=== PATIENT | male | born 1970 | race African-American/Black ===

== ENCOUNTER 2019-08-25 21:03 | Inpatient (IN) | payer OTHER ==
[~2019-08-25] VITALS: Ht 180.3 cm; Wt 83.9 kg
[2019-08-25] MEDS ORDERED: GAVILAX510 GM PO (23:08)
[2019-08-25] MEDS ORDERED: METFORMIN HCL500 M1 PO (23:08)
[2019-08-25] MEDS ORDERED: GLIMEPIRIDE2 MG PO (23:09)
[2019-08-25 23:17] VITALS: BP 167/104; BMI 25.8
--- NOTE | 2019-08-26 04:12 | NUR ---
I have reviewed this patient and I concur with the Shift Assessment completed by the Licensed Practical Nurse today this shift.
--- NOTE | 2019-08-26 07:24 | NUR ---
PT AWAKE AND ORIENTED, NO COMPLAINTS OR CONCERNS STATED AT THIS TIME. SISTER AT BEDSIDE REQUESTS TOOTHBRUSH AND TOOTHPASTE FOR THE PT, STATING HE FORGOT HIS. NO PROBLEM WILL PROVIDE. HAVE NO ORDERS AT THIS TIME. CL IN REACH, SRX2.
[2019-08-26 08:28] LABS: BASOPHILS 0.4 % (0-2); EOSINOPHILS 2.8 % (0-7); HEMATOCRIT 34.8 % (42.0-54.0); HEMOGLOBIN 11.4 g/dL (13.5-17.5); LYMPHOCYTES 27.7 % (15-50); MCH 29.2 pg (26.0-34.0); MCHC 32.8 g/dL (31.0-37.0); MCV 89.2 fL (80.0-100.0); MEAN PLATELET VOLUME 9.2 fL (7.4-10.4); MONOCYTES 5.4 % (2-11); NEUTROPHILS 63.7 % (40-80); PLATELET COUNT 233 10x3/uL (130-400); RDW 13.3 % (11.5-14.5); WBC 5.4 10x3/uL (4.8-10.8)
[2019-08-26 08:47] LABS: ANION GAP 12.7 mmol/L (8-16); CALCIUM 9.3 mg/dL (8.5-10.1); CARBON DIOXIDE 29.2 mmol/L (21.0-32.0); CREATININE - SERUM 5.1 mg/dL (0.6-1.3); POTASSIUM - SERUM 4.9 mmol/L (3.5-5.1)
[2019-08-26 08:50] VITALS: BP 170/112
--- NOTE | 2019-08-26 10:06 | NUR ---
PT AWAKE AND ORIENTED, SISTERS AT BEDSIDE. NO COMLAINTS, ALL QUESTIONS ANSWERED TO THE BEST OF MY ABILITY. CL IN REACH, SRX2.
--- NOTE | 2019-08-26 10:46 | NUR ---
I have reviewed this patient and I concur with the Shift Assessment completed by the Licensed Practical Nurse today this shift.
[2019-08-26 12:19] LABS: ALBUMIN 2.7 g/dL (3.4-5.0); ANION GAP 15.7 mmol/L (8-16); BILIRUBIN - TOTAL 0.38 mg/dL (0.2-1.3); CALCIUM 9.4 mg/dL (8.5-10.1); CARBON DIOXIDE 25.2 mmol/L (21.0-32.0); CHOL - HDL RATIO 4.6 ratio (2.3-4.9); CREATININE - SERUM 5.2 mg/dL (0.6-1.3); LDL-HDL RATIO 3.2 ratio (1.5-3.5); MAGNESIUM - SERUM 2.1 mg/dL (1.8-2.4); PHOSPHOROUS 3.7 mg/dL (2.5-4.9); POTASSIUM - SERUM 4.9 mmol/L (3.5-5.1)
[2019-08-26 12:56] VITALS: BP 166/109
[2019-08-26 17:30] VITALS: BP 147/100
[2019-08-26 20:04] VITALS: BP 156/92
--- NOTE | 2019-08-26 22:33 | NUR ---
PT LYING IN BED WITH EYES OPEN. ALERT AND ORIENTED X3. VITAL SIGNS STABLE. NO SIGNS AND SYMPTOMS OF DISTRESS. RESPIRATIONS EVEN AND UNLABORED. NO COMPLAINTS OF PAIN AT THIS TIME. CALL LIGHT WITHIN REACH AND BED IS IN LOWEST POSITION. WILL CONTINUE TO MONITOR.
--- NOTE | 2019-08-26 23:47 | NUR ---
PT BP 153/109 MARGARET WITH [facility] CALLED. NEW MED ORDERS ESTABLISHED. SEE NOV. WILL CONTINUE TO MONITOR.
[2019-08-27 00:01] VITALS: BP 157/103
--- NOTE | 2019-08-27 03:00 | NUR ---
PT BP 129/89. WILL CONTINUE TO MONITOR.
--- NOTE | 2019-08-27 03:33 | NUR ---
I have reviewed this patient and I concur with the Shift Assessment completed by the Licensed Practical Nurse today this shift.
[2019-08-27 05:10] LABS: APPEARANCE CLEAR (CLEAR); BILIRUBIN NEGATIVE (NEGATIVE); COLOR YELLOW (YELLOW); GLUCOSE NEGATIVE (NEGATIVE); KETONE NEGATIVE (NEGATIVE); NITRITE NEGATIVE (NEGATIVE); PROTEIN NEGATIVE (NEGATIVE); SPECIFIC GRAVITY 1.005 (1.005-1.020); UROBILINOGEN NORMAL (NORMAL)
[2019-08-27 05:19] LABS: UDS - AMPHET NEGATIVE QUAL (NEGATIVE); UDS - BARB NEGATIVE QUAL (NEGATIVE); UDS - BENZO NEGATIVE QUAL (NEGATIVE); UDS - COCAINE NEGATIVE QUAL (NEGATIVE); UDS - OPIATE NEGATIVE QUAL (NEGATIVE); UDS - PCP NEGATIVE QUAL (NEGATIVE); UDS - THC NEGATIVE QUAL (NEGATIVE)
[2019-08-27 05:28] VITALS: BP 129/89
[2019-08-27 06:41] LABS: BASOPHILS 0.2 % (0-2); EOSINOPHILS 3.5 % (0-7); HEMATOCRIT 34.1 % (42.0-54.0); LYMPHOCYTES 26.8 % (15-50); MCH 28.6 pg (26.0-34.0); MCHC 32.3 g/dL (31.0-37.0); MCV 88.8 fL (80.0-100.0); MEAN PLATELET VOLUME 9.5 fL (7.4-10.4); MONOCYTES 8.2 % (2-11); NEUTROPHILS 61.3 % (40-80); PLATELET COUNT 261 10x3/uL (130-400); RBC 3.84 10x6/uL (4.20-6.10); RDW 13.3 % (11.5-14.5); WBC 5.1 10x3/uL (4.8-10.8)
[2019-08-27 06:49] LABS: ANION GAP 13.5 mmol/L (8-16); CARBON DIOXIDE 27.7 mmol/L (21.0-32.0); CREATININE - SERUM 4.4 mg/dL (0.6-1.3); PHOSPHOROUS 3.4 mg/dL (2.5-4.9); POTASSIUM - SERUM 4.2 mmol/L (3.5-5.1); URIC ACID 6.3 mg/dL (2.6-7.2)
--- NOTE | 2019-08-27 07:09 | NUR ---
PT AWAKE AND ORIENTED LYING IN BED, FAMILY MEMEBER AT BEDSIDE RECLINER. NO COMPLAINTS OR CONCERNS AT THIS TIME, ALL QUESTIONS ANSWERED TO THE BEST OF MY ABILITY. CL IN REACH, SRX2.
[2019-08-27 08:00] VITALS: BP 129/89
--- NOTE | 2019-08-27 09:11 | NUR ---
SPOE WITH LAB ABOUT THE 3 UNCOLLECTED URINES, THEY STATED THEY COULD RUN THEM OFF OF THE URINE THAT WAS COLLECTED LAST NIGHT. PT STATES HE'S FEELING A LITTLE BETTER, JUST VERY TIRED. NO FAMILY PRESENT AT BEDSIDE. CL IN REACH, SRX2.
[2019-08-27 09:24] LABS: CREATININE - URINE 37.5 mg/dL (30-125); PRO/CRE RATIO URINE 0.2 mg/g; PROTEIN - URINE 8.7 mg/dL (0.0-11.9)
--- NOTE | 2019-08-27 10:47 | NUR ---
I have reviewed this patient and I concur with the Shift Assessment completed by the Licensed Practical Nurse today this shift.
--- NOTE | 2019-08-27 11:45 | NUR ---
SPOKE WITH ULTRASOUND PEOPLE, THEY STATED THEY WERE COMING TO DO THE ULTRASOUND DR. BALLESTEROS ORDERED BUT THEY WOULDNT BE REPEATING THE KIDNEY ONE BECASUE IT WAS DONE AND REPORTED YESTERDAY (08/26). PT HAS BEEN COMPLAINING OF A HEADACHE, B/P IS WNL. GAVE TYLENOL FOR RELIEF. NO OTHER COMPLAINTS/CONCERNS, ALL QUESTIONS ANSWERED.CL IN REACH, SRX2.
[2019-08-27 12:00] VITALS: BP 146/92
--- NOTE | 2019-08-27 14:58 | NUR ---
PT AWAKE AND ORIENTED, NO COMPLAINTS OR CONCERNS, STATES HEADACHE IS FEELING BETTER. NO FAMILY AT BEDSIDE. CL IN REACH, SRX2.
[2019-08-27 15:16] VITALS: BMI 25.8
[2019-08-27 16:00] VITALS: BP 128/93
[2019-08-27 20:45] VITALS: BP 131/87
--- NOTE | 2019-08-28 00:19 | NUR ---
RESTING WITH EYES CLOSED, RESPERATIONS EVEN, NO S/S DISTRESS NOTED.
[2019-08-28 00:30] VITALS: BP 134/86
--- NOTE | 2019-08-28 02:10 | NUR ---
I have reviewed this patient and I concur with the Shift Assessment completed by the Licensed Practical Nurse today this shift.
[2019-08-28 04:43] VITALS: BP 132/81
[2019-08-28 06:28] LABS: BASOPHILS 0.5 % (0-2); EOSINOPHILS 3.3 % (0-7); HEMATOCRIT 36.2 % (42.0-54.0); HEMOGLOBIN 11.5 g/dL (13.5-17.5); IMMATURE GRANULOCYTES 0.2 % (0-5); LYMPHOCYTES 22.3 % (15-50); MCH 28.3 pg (26.0-34.0); MCHC 31.8 g/dL (31.0-37.0); MCV 89.2 fL (80.0-100.0); MEAN PLATELET VOLUME 9.7 fL (7.4-10.4); MONOCYTES 6.5 % (2-11); NEUTROPHILS 67.2 % (40-80); PLATELET COUNT 276 10x3/uL (130-400); RBC 4.06 10x6/uL (4.20-6.10); RDW 13.1 % (11.5-14.5); WBC 5.5 10x3/uL (4.8-10.8)
[2019-08-28 06:50] LABS: ANION GAP 11.5 mmol/L (8-16); CALCIUM 9.1 mg/dL (8.5-10.1); CARBON DIOXIDE 29.9 mmol/L (21.0-32.0); CREATININE - SERUM 3.9 mg/dL (0.6-1.3); PHOSPHOROUS 3.6 mg/dL (2.5-4.9); POTASSIUM - SERUM 4.4 mmol/L (3.5-5.1)
[2019-08-28 08:00] VITALS: BP 152/99
--- NOTE | 2019-08-28 09:54 | NUR ---
PATIENT IS BEING DISCHARGED. ALL DISCHARGE TEACHING HAS BEEN DONE, PAPERS SIGNED. IV REMOVED FROM HIS RIGHT ARM. SON AT BEDSIDE. PATIENT IS WAITING ON HIS O2 TO BE DELIVERED FOR[facility]. SOON THE O2 IS DELIVERED, HE CAN BE DISCHARGED TO HOME.
--- NOTE | 2019-08-28 09:56 | NUR ---
PATIENT IS ALERT AND AWAKE. DENIES ANY NEEDS AT THIS TIME.
[2019-08-28 10:10] LABS: ANA REFLEX - DBL STRANDED DNA <1 IU/mL (0-9); ANA REFLEX - DIRECT Negative (Negative)
[2019-08-28 11:10] LABS: HAPTOGLOBIN 329 mg/dL (34-200)
[2019-08-28 12:00] VITALS: BP 141/97
[2019-08-28 12:09] LABS: UPE RAND - ALBUMIN 17.5 % (()); UPE RAND - ALPHA 1 GLOBULIN 8.6 % (()); UPE RAND - ALPHA 2 GLOBULIN 12.6 % (()); UPE RAND - BETA GLOBULIN 12.6 % (()); UPE RAND - GAMMA GLOBULIN 48.8 % (())
--- NOTE | 2019-08-28 14:49 | NUR ---
Nutrition Follow-up: Pt reports not eating breakfast this AM but eating ~50% of lunch. C/o nausea. Did not have any further questions regarding diabetic education provided yesterday. Diet: Renal ADA Wt: 185# Last BM: 08/27 Labs noted: Glu 149, GFR 21, PO4 3.6 Meds noted: Amaryl, Humulin -Continue current diet as tolerated. -Encourage PO intake. -RD following.
[2019-08-28 16:00] VITALS: BP 159/103
--- NOTE | 2019-08-28 16:37 | MORECARE ---
CASE MANAGEMENT DISCHARGE SUMMARY PATIENT: SHERRY MURILLO UNIT: [id number] ADM DATE: 08/25/19 AGE: 49 : 74 SEX: M ROOM/BED: D.2138 AUTHOR: SHIRA BANGURA PHYSICIAN: REFERRING PHYSICIAN: LIZZETTE TUBBS MD DATE OF SERVICE: 08/28/19 Discharge Plan Patient Name: SHERRY MURILLO [facility] : 1970 Planned Disposition: Home Anticipated Discharge Date: 08/28/19 Discharge Date: Expected LOS: 3 Initial Reviewer: [email or web address] Initial Review Date: 08/28/2019 Generated: 08/28/19 5:36 pm DCPIA - Discharge Planning Initial Assessment Updated by [email or web address]: Harjit Lomas on 08/28/19 4:36 pm * Is the patient Alert and Oriented? Yes * How many steps to enter\exit or inside your home? * PCP DR. JESSICA BRAGA [place] * Pharmacy [facility] IN [place] OR [facility] IN [place] * Preadmission Environment Home Alone * ADLs Independent * Equipment Glucometer * Other Equipment NO MEDICAL EQUIPMENT PROVIDER PREFERENCE * List name and contact numbers for known caregivers / representatives who currently or will assist patient after discharge: NADINE HUGGINS, , * Verbal permission to speak to the caregivers and representatives has been obtained from the patient. N/A * Community resources currently utilized None * Please name any agencies selected above. NONE * Additional services required to return to the preadmission environment? No * Can the patient safely return to the preadmission environment? Yes * Has this patient been hospitalized within the prior 30 days at any hospital? No Patient Name: SHERRY MURILLO Page [id number] at 1637 All edits/amendments must be made on the electronic document DICTATION DATE: 08/28/191635 REGULATORY AFFAIRS STRATEGY SPECIALIST: CONSTANTINO 08/28/191635 RPT#: [id number] DC DATE: STATUS: ADM IN [facility] [address] [place] [address] END OF REPORT
--- NOTE | 2019-08-28 16:46 | MORECARE ---
CASE MANAGEMENT DISCHARGE SUMMARY PATIENT: SHERRY MURILLO UNIT: [id number] ADM DATE: 08/25/19 AGE: 49 : 74 SEX: M ROOM/BED: D.8298 AUTHOR: WILLEM,DOC PHYSICIAN: REFERRING PHYSICIAN: LIZZETTE TUBBS MD DATE OF SERVICE: 08/28/19 Discharge Plan Patient Name: SHERRY MURILLO Facility: [facility]:[place] : 1970 Planned Disposition: Home Anticipated Discharge Date: 08/28/19 Discharge Date: Expected LOS: 3 Initial Reviewer: [email or web address] Initial Review Date: 08/28/2019 Generated: 08/28/19 5:46 pm Comments DCP- Discharge Planning Updated by [email or web address]: Harjit Lomas on 08/28/19 3:[address] Patient Name: SHERRY MURILLO Admission Status: Elective Accout number: [id number] Admission Date: 08-25-2019 : 1970 Admission Diagnosis: Attending: LIZZETTE TUBBS Current LOS: 3 Anticipated DC Date: 08-28-2019 Planned Disposition: Home Primary Insurance: [employer] PPO Discharge Planning Comments: CM MET WITH PT IN ROOM TO DISCUSS DISCHARGE PLANNING AND NEEDS. PT REPORTS LIVING AT HOME INDEPENDENTLY AND ALONE. PT HAS GLUCOMETER WITH NO MEDICAL EQUIPMENT PROVIDER PREFERNECE. PT HAS NO OUTSIDE SERVICES ASSISTING IN THE HOME. CM DISCUSSED AVAILABILITY OF HOME HEALTH, REHAB SERVICES AND MEDICAL EQUIPMENT. PT DENIES DISCHARGE NEEDS, REPORTS HE WILL STAY WITH HIS SISTER AFTER DISCHARGE AND SHE WILL PICK HIM UP FOR DISCHARGE HOME. PT PLANS TO DISCHARGE HOME WITH SISTER; PT HAS NO ANTICIPATED DISCHARGE NEEDS AT THIS TIME. SISTER TO TRANSPORT HOME AT DISCHARGE. CM TO FOLLOW AND ASSIST NEEDED. Office Machine Service Supervisor: Harjit Lomas DCPIA - Discharge Planning Initial Assessment Updated by [email or web address]: Harjit Lomas on 08/28/19 4:41 pm * Is the patient Alert and Oriented? Yes * How many steps to enter\exit or inside your home? * PCP DR. JESSICA BRAGA [place] * Pharmacy [facility] IN [place] OR [facility] IN [place] * Preadmission Environment Home Alone * ADLs Independent * Equipment Glucometer * Other Equipment NO MEDICAL EQUIPMENT PROVIDER PREFERENCE * List name and contact numbers for known caregivers / representatives who currently or will assist patient after discharge: NADINE HUGGINS, SISTER, * Verbal permission to speak to the caregivers and representatives has been obtained from the patient. N/A * Community resources currently utilized None * Please name any agencies selected above. NONE * Additional services required to return to the preadmission environment? No * Can the patient safely return to the preadmission environment? Yes * Has this patient been hospitalized within the prior 30 days at any hospital? Yes Last DP export: 08/28/19 3:37 Patient Name: SHERRY MURILLO Page [id number] at 1646 All edits/amendments must be made on the electronic document DICTATION DATE: 08/28/191645 AIRCRAFT STRUCTURAL REPAIR MECHANIC: CONSTANTINO 08/28/191645 RPT#: [id number] DC DATE: STATUS: ADM IN [facility] [address] [place] [address] END OF REPORT
--- NOTE | 2019-08-28 19:45 | NUR ---
PT ALERT AND ORIENTED AND X4. RR EVEN AND UNLABORED. NO S/S OF DISTRESS AT THIS TIME. BED LOW CALL LIGHT WITHIN REACH WILL CONTINUE TO MONITOR.
[2019-08-29 00:15] VITALS: BP 130/89
--- NOTE | 2019-08-29 04:21 | NUR ---
I have reviewed this patient and I concur with the Shift Assessment completed by the Licensed Practical Nurse today this shift.
[2019-08-29 04:30] VITALS: BP 140/99
[2019-08-29 05:25] LABS: BASOPHILS 0.6 % (0-2); EOSINOPHILS 3.5 % (0-7); HEMATOCRIT 37.2 % (42.0-54.0); HEMOGLOBIN 12.3 g/dL (13.5-17.5); IMMATURE GRANULOCYTES 0.2 % (0-5); LYMPHOCYTES 30.4 % (15-50); MCH 29.4 pg (26.0-34.0); MCHC 33.1 g/dL (31.0-37.0); MCV 88.8 fL (80.0-100.0); MEAN PLATELET VOLUME 9.5 fL (7.4-10.4); MONOCYTES 7.1 % (2-11); NEUTROPHILS 58.2 % (40-80); PLATELET COUNT 297 10x3/uL (130-400); RBC 4.19 10x6/uL (4.20-6.10); RDW 13.1 % (11.5-14.5); WBC 5.2 10x3/uL (4.8-10.8)
[2019-08-29 05:38] LABS: ANION GAP 13.8 mmol/L (8-16); CALCIUM 9.4 mg/dL (8.5-10.1); CARBON DIOXIDE 28.3 mmol/L (21.0-32.0); CREATININE - SERUM 3.3 mg/dL (0.6-1.3); PHOSPHOROUS 4.1 mg/dL (2.5-4.9); POTASSIUM - SERUM 4.1 mmol/L (3.5-5.1)
[2019-08-29 09:36] VITALS: BP 124/89
--- NOTE | 2019-08-29 14:33 | NUR ---
B/P RECHECKED WITH READING OF 140/92
[2019-08-29 14:47] VITALS: BP 143/106
[2019-08-29 15:10] LABS: SPE - A/G RATIO 0.6 (0.7-1.7); SPE - ALPHA-1 GLOBULIN 0.3 g/dL (0.0-0.4); SPE - ALPHA-2 GLOBULIN 0.9 g/dL (0.4-1.0); SPE - BETA GLOBULIN 1.2 g/dL (0.7-1.3); SPE - M-SPIKE Not Observed g/dL (Not Observed); SPE - TOTAL PROTEIN 8.4 g/dL (6.0-8.5)
--- NOTE | 2019-08-29 17:35 | NUR ---
RESTS IN BED WITH EYES CLOSED. CALL LIGHT IN REACH. WILL CONT. PLAN OF CARE.
--- NOTE | 2019-08-29 18:27 | NUR ---
I have reviewed this patient and I concur with the Shift Assessment completed by the Licensed Practical Nurse today this shift.
--- NOTE | 2019-08-29 21:16 | NUR ---
PT ALERT AND ORIENTED X4. RR EVEN AND UNLABORED. PT COMPLAINS OF NAUSEA. PRN ZOFRAN GIVEN. BED LOW CALL LIGHT WITHIN REACH. WILL CONTINUE TO MONITOR.
[2019-08-30 06:45] LABS: BASOPHILS 0.6 % (0-2); EOSINOPHILS 1.8 % (0-7); HEMATOCRIT 39.5 % (42.0-54.0); HEMOGLOBIN 12.9 g/dL (13.5-17.5); IMMATURE GRANULOCYTES 0.4 % (0-5); LYMPHOCYTES 33.5 % (15-50); MCH 29.2 pg (26.0-34.0); MCHC 32.7 g/dL (31.0-37.0); MCV 89.4 fL (80.0-100.0); MEAN PLATELET VOLUME 9.4 fL (7.4-10.4); MONOCYTES 7.7 % (2-11); PLATELET COUNT 308 10x3/uL (130-400); RBC 4.42 10x6/uL (4.20-6.10); RDW 13.4 % (11.5-14.5); WBC 5.4 10x3/uL (4.8-10.8)
[2019-08-30 07:14] LABS: ANION GAP 13.3 mmol/L (8-16); CALCIUM 9.9 mg/dL (8.5-10.1); CARBON DIOXIDE 28.2 mmol/L (21.0-32.0); CREATININE - SERUM 3.2 mg/dL (0.6-1.3); PHOSPHOROUS 4.6 mg/dL (2.5-4.9); POTASSIUM - SERUM 4.5 mmol/L (3.5-5.1)
[2019-08-30 08:00] VITALS: BP 133/97
[2019-08-30 12:00] VITALS: BP 147/97
--- NOTE | 2019-08-30 15:46 | NUR ---
PT TO PREOP VIA BED. CONSENTS SIGNED AND PEPCID GIVEN. FAMILY WITH PT. EMESIS BAG GIVEN DUE TO NAUSEA AT PRESENT.
--- NOTE | 2019-08-30 19:17 | NUR ---
ASSISTED WITH A FEW NEEDS BED LOW AND LOCKED CALL LIGHT IN REACH LCTA SKIN WARM AND DRY AND BOWEL SOUNDS X4
[2019-08-30 20:30] VITALS: BP 129/88
--- NOTE | 2019-08-31 02:38 | NUR ---
I have reviewed this patient and I concur with the Shift Assessment completed by the Licensed Practical Nurse today this shift.
[2019-08-31 04:30] VITALS: BP 139/93; BP 142/103
[2019-08-31 06:39] LABS: ANION GAP 12.9 mmol/L (8-16); CALCIUM 9.9 mg/dL (8.5-10.1); CARBON DIOXIDE 28.4 mmol/L (21.0-32.0); CREATININE - SERUM 3.1 mg/dL (0.6-1.3); PHOSPHOROUS 4.4 mg/dL (2.5-4.9); POTASSIUM - SERUM 4.3 mmol/L (3.5-5.1)
[2019-08-31 06:59] LABS: BASOPHILS 0.5 % (0-2); EOSINOPHILS 1.2 % (0-7); HEMATOCRIT 41.2 % (42.0-54.0); HEMOGLOBIN 13.5 g/dL (13.5-17.5); IMMATURE GRANULOCYTES 0.2 % (0-5); LYMPHOCYTES 27.3 % (15-50); MCH 29.3 pg (26.0-34.0); MCHC 32.8 g/dL (31.0-37.0); MCV 89.6 fL (80.0-100.0); MEAN PLATELET VOLUME 9.8 fL (7.4-10.4); MONOCYTES 6.5 % (2-11); NEUTROPHILS 64.3 % (40-80); PLATELET COUNT 342 10x3/uL (130-400); RDW 13.5 % (11.5-14.5)
[2019-08-31 09:39] VITALS: BP 148/102
[2019-08-31 14:01] VITALS: Ht 180.3 cm; Wt 83.9 kg
[2019-08-31 14:38] VITALS: BP 148/104
--- NOTE | 2019-08-31 14:57 | NUR ---
Nutrition Follow-up: EGD yesterday showed reflux-induced esophagitis and gastritis. GES today. Diet: NPO No new wt Last BM: 08/28 per chart Labs noted: Glu 151, GFR 28 Meds noted: Pepcid, Amaryl, Zofran, Humulin, Protonix -Rec resume diet when medically feasible. -May consider Procalamine 2/2 ongoing poor PO intake. -Need new wt. -RD following.
[2019-08-31 20:00] VITALS: BP 153/109
[2019-09-01] VITALS: BP 133/99
[2019-09-01 04:00] VITALS: BP 143/104
--- NOTE | 2019-09-01 07:00 | NUR ---
RECEIVED REPORT. ASSUMED CARE OF PATIENT. CALL LIGHT WITHIN REACH. PATIENT SITTING TO SIDE OF BED. RESP EVEN AND UNLAOBED. NO DISTRESS. NO VISITORS AT BEDSIDE. PATIENT STATES HE FEELS DEHYDRATED, NO IV FLUIDS INFUSING, ROOM IS HOT AND DRY. FRESH ICE WATER PROVIDED AT THIS TIME. NO DISTRESS.
[2019-09-01 07:02] LABS: BASOPHILS 0.4 % (0-2); HEMATOCRIT 44.8 % (42.0-54.0); HEMOGLOBIN 14.7 g/dL (13.5-17.5); IMMATURE GRANULOCYTES 0.1 % (0-5); LYMPHOCYTES 29.2 % (15-50); MCH 29.6 pg (26.0-34.0); MCHC 32.8 g/dL (31.0-37.0); MCV 90.1 fL (80.0-100.0); MEAN PLATELET VOLUME 10.5 fL (7.4-10.4); MONOCYTES 7.1 % (2-11); NEUTROPHILS 62.2 % (40-80); PLATELET COUNT 404 10x3/uL (130-400); RBC 4.97 10x6/uL (4.20-6.10); RDW 14.1 % (11.5-14.5); WBC 6.8 10x3/uL (4.8-10.8)
[2019-09-01 08:47] LABS: ALBUMIN 3.2 g/dL (3.4-5.0); ANION GAP 11.9 mmol/L (8-16); BILIRUBIN - TOTAL 0.59 mg/dL (0.2-1.3); CARBON DIOXIDE 28.7 mmol/L (21.0-32.0); CREATININE - SERUM 3.3 mg/dL (0.6-1.3); POTASSIUM - SERUM 4.6 mmol/L (3.5-5.1); PROTEIN - SERUM 10.6 g/dL (6.4-8.2)
[2019-09-01 09:05] VITALS: BP 154/101
--- NOTE | 2019-09-01 11:58 | NUR ---
FSBS 198. 2 UNITS HUMULIN ADMINISTERED PER SLIDING SCALE.
[2019-09-01 12:41] VITALS: BP 153/103
--- NOTE | 2019-09-01 13:20 | NUR ---
PATIENT HAS NOW RETURNED FROM MRI AND BEING CONNECTED TO FLUIDS. PRN CLONIDINE AT THIS TIME ADMINISTERED.
[2019-09-01 16:11] VITALS: BP 127/87
--- NOTE | 2019-09-01 16:46 | NUR ---
FSBS 135. NO INSULIN PER SLIDING SCALE.
--- NOTE | 2019-09-01 17:02 | NUR ---
PATIENTS SISTER CALLED TO CHECK ON HIM, NO DISTRESS, HE IS RESTING WELL.
--- NOTE | 2019-09-01 19:46 | NUR ---
RECEIVED LAYING IN BED WITH EYES CLOSED. EASILY AROUSES WITH VERBAL STIMULI. REFUSED DINNER. IV TO RIGHT FA WITH NS @ 100CC/HR. EDUCATED ON NPO AFTER MN STATUS. NO C/O N/V AT THIS TIME.
[2019-09-01 20:36] VITALS: BP 147/102
[2019-09-02 00:27] VITALS: BP 132/94
[2019-09-02 04:45] VITALS: BP 122/86
[2019-09-02 06:33] LABS: BASOPHILS 0.6 % (0-2); EOSINOPHILS 1.5 % (0-7); HEMATOCRIT 40.4 % (42.0-54.0); IMMATURE GRANULOCYTES 0.2 % (0-5); LYMPHOCYTES 31.9 % (15-50); MCHC 32.2 g/dL (31.0-37.0); MEAN PLATELET VOLUME 10.2 fL (7.4-10.4); MONOCYTES 7.3 % (2-11); NEUTROPHILS 58.5 % (40-80); PLATELET COUNT 329 10x3/uL (130-400); RBC 4.49 10x6/uL (4.20-6.10); RDW 13.5 % (11.5-14.5); WBC 5.5 10x3/uL (4.8-10.8)
[2019-09-02 06:53] LABS: ANION GAP 14.7 mmol/L (8-16); BILIRUBIN - TOTAL 0.51 mg/dL (0.2-1.3); CALCIUM 9.3 mg/dL (8.5-10.1); CARBON DIOXIDE 25.5 mmol/L (21.0-32.0); CREATININE - SERUM 3.4 mg/dL (0.6-1.3); POTASSIUM - SERUM 4.2 mmol/L (3.5-5.1); PROTEIN - SERUM 9.4 g/dL (6.4-8.2)
--- NOTE | 2019-09-02 07:00 | NUR ---
RECEVIED REPORT. ASSUMED CARE OF PATIENT. PATIENT RESTING ON LEFT LATERAL SIDE, NS INFUSING ORDERED. PATIENT EASILY AROUSED. STATES HE SLEPT WELL AND FEELS A LITTLE BETTER THIS AM. REMINDED PATIENT OF HIS PIPIDA SCAN THIS AM. NO DISTRESS. DENIES NEEDS.
--- NOTE | 2019-09-02 07:33 | NUR ---
MICHAEL FROM MRI CALLED AND WILL BE HERE TO RETRIEVE PATIENT IN 10 MINUTES FOR PIPIDA SCAN.
--- NOTE | 2019-09-02 07:50 | NUR ---
PATIENT LEFT UNIT VIA WHEELCHAIR AT THIS TIME FOR PIPIDA SCAN
--- NOTE | 2019-09-02 11:55 | NUR ---
FSBS 185. 2 U NITS HUMULIN INSULIN ADMINISTERED PER SLIDING SCALE.
[2019-09-02 12:00] VITALS: BP 154/104
--- NOTE | 2019-09-02 14:02 | NUR ---
SITTING UP IN BED, NO DISTRESS. CALL LIGHT WITHIN REACH.
--- NOTE | 2019-09-02 16:19 | NUR ---
FSBS 172. 2 UNITS HUMULIN INSULIN PER SLIDING SCALE ADMINISTERED
[2019-09-02 16:32] VITALS: BP 158/106
--- NOTE | 2019-09-02 19:46 | NUR ---
RECEIVED LAYING ION BED WITH EYES OPEN AND TV ON. ALERT AND ORIENTED X4. UP AD BRIAN TO B/R. CONSENTS SIGNS FOR PROCEDURE TOMORROW AND EXPLAINED. DENIES ANY OTHER QUESTIONS. IV TO RIGHT AC WITH NS AT 100CC/HR. DENIES Any needs at this time.
[2019-09-03 00:30] VITALS: BP 117/86
[2019-09-03 04:30] VITALS: BP 131/94
[2019-09-03 05:54] LABS: BASOPHILS 0.4 % (0-2); EOSINOPHILS 1.1 % (0-7); HEMATOCRIT 41.1 % (42.0-54.0); HEMOGLOBIN 13.2 g/dL (13.5-17.5); IMMATURE GRANULOCYTES 0.2 % (0-5); LYMPHOCYTES 31.3 % (15-50); MCH 28.9 pg (26.0-34.0); MCHC 32.1 g/dL (31.0-37.0); MCV 89.9 fL (80.0-100.0); MEAN PLATELET VOLUME 10.1 fL (7.4-10.4); MONOCYTES 5.8 % (2-11); NEUTROPHILS 61.2 % (40-80); PLATELET COUNT 336 10x3/uL (130-400); RBC 4.57 10x6/uL (4.20-6.10); RDW 13.5 % (11.5-14.5); WBC 5.4 10x3/uL (4.8-10.8)
[2019-09-03 06:33] LABS: ALBUMIN 2.9 g/dL (3.4-5.0); ANION GAP 12.7 mmol/L (8-16); BILIRUBIN - TOTAL 0.46 mg/dL (0.2-1.3); CALCIUM 9.5 mg/dL (8.5-10.1); CARBON DIOXIDE 25.2 mmol/L (21.0-32.0); CREATININE - SERUM 2.9 mg/dL (0.6-1.3); POTASSIUM - SERUM 3.9 mmol/L (3.5-5.1); PROTEIN - SERUM 9.4 g/dL (6.4-8.2)
--- NOTE | 2019-09-03 07:44 | NUR ---
REPORT RECIEVED. PT LYING ON RIGHT SIDE, RR EVEN AND UNLABORED ON RA. HE HAS A R FA PIV INFUSING NS @ 100. HE IS CURRENTLY NPO FOR A PROCEDURE TODAY. BED LOCKED AND IN LOWEST POSITION, CALL LIGHT WITHIN REACH. WILL CTM.
[2019-09-03 09:20] VITALS: BP 148/107
[2019-09-03 13:41] VITALS: BP 134/97
--- NOTE | 2019-09-03 14:08 | NUR ---
I have reviewed this patient and I concur with the Shift Assessment completed by the Licensed Practical Nurse today this shift.
[2019-09-03] MEDS ORDERED: HYDROCODON-ACE1 EAC7 PO (15:43)
[2019-09-03 16:45] VITALS: BP 152/99
--- NOTE | 2019-09-03 16:50 | MORECARE ---
CASE MANAGEMENT DISCHARGE SUMMARY PATIENT: SHERRY MURILLO UNIT: [id number] ADM DATE: 08/25/19 AGE: 49 : 74 SEX: M ROOM/BED: D.9228 AUTHOR: WILLEM,DOC PHYSICIAN: REFERRING PHYSICIAN: LIZZETTE TUBBS MD DATE OF SERVICE: 09/03/19 Discharge Plan Patient Name: SHERRY MURILLO Facility: [facility]:[place] : 1970 Planned Disposition: Home Anticipated Discharge Date: 09/03/19 Discharge Date: Expected LOS: 9 Initial Reviewer: [email or web address] Initial Review Date: 08/28/2019 Generated: 09/03/19 5:50 pm DCP- Discharge Planning Updated by [email or web address]: Harjit Lomas on 08/28/19 3:[address] Patient Name: SHERRY MURILLO Admission Status: Elective Accout number: [id number] Admission Date: 08-25-2019 : 1970 Admission Diagnosis: Attending: LIZZETTE TUBBS Current LOS: 3 Anticipated DC Date: 08-28-2019 Planned Disposition: Home Primary Insurance: [employer] PPO Discharge Planning Comments: CM MET WITH PT IN ROOM TO DISCUSS DISCHARGE PLANNING AND NEEDS. PT REPORTS LIVING AT HOME INDEPENDENTLY AND ALONE. PT HAS GLUCOMETER WITH NO MEDICAL EQUIPMENT PROVIDER PREFERNECE. PT HAS NO OUTSIDE SERVICES ASSISTING IN THE HOME. CM DISCUSSED AVAILABILITY OF HOME HEALTH, REHAB SERVICES AND MEDICAL EQUIPMENT. PT DENIES DISCHARGE NEEDS, REPORTS HE WILL STAY WITH HIS SISTER AFTER DISCHARGE AND SHE WILL PICK HIM UP FOR DISCHARGE HOME. PT PLANS TO DISCHARGE HOME WITH SISTER; PT HAS NO ANTICIPATED DISCHARGE NEEDS AT THIS TIME. SISTER TO TRANSPORT HOME AT DISCHARGE. CM TO FOLLOW AND ASSIST NEEDED. Pipe Organ Technician: Harjit Lomas DCPIA - Discharge Planning Initial Assessment Updated by [email or web address]: Harjit Lomas on 08/28/19 4:41 pm * Is the patient Alert and Oriented? Yes * How many steps to enter\exit or inside your home? * PCP DR. JESSICA BRAGA, [place] * Pharmacy [facility] IN [place] OR [facility] IN [place] * Preadmission Environment Home Alone * ADLs Independent * Equipment Glucometer * Other Equipment NO MEDICAL EQUIPMENT PROVIDER PREFERENCE * List name and contact numbers for known caregivers / representatives who currently or will assist patient after discharge: NADINE HUGGINS, SISTER, * Verbal permission to speak to the caregivers and representatives has been obtained from the patient. N/A * Community resources currently utilized None * Please name any agencies selected above. NONE * Additional services required to return to the preadmission environment? No * Can the patient safely return to the preadmission environment? Yes * Has this patient been hospitalized within the prior 30 days at any hospital? Yes Last DP export: 08/28/19 3:46 Patient Name: SHERRY MURILLO Page [id number] at 1650 All edits/amendments must be made on the electronic document DICTATION DATE: 09/03/191649 DUPLICATOR PUNCH OPERATOR: CONSTANTINO 09/03/191649 RPT#: [id number] DC DATE: STATUS: ADM IN [facility] [address] [place] [address] END OF REPORT
--- NOTE | 2019-09-03 18:46 | NUR ---
DC PAPERWORK GONE OVER AND SIGNED WITH PT. ALL QUESTIONS ANSWERED. PIV REMOVED, CATH TIP FULLY INTACT. ALL VALUBLES REMOVED FROM ROOM. PT ESCORTED TO FRONT ENTRANCE VIA WHEELCHAIR.
== END 2019-09-03 18:47 | disposition home or self-care (01) | DRG 989 ==
LOC: D.M2 21:03
PROVIDERS: Emergency Medicine; Internal Medicine; Internal Medicine Nephrology; Surgery; ADMIT Internal Medicine Nephrology; ATTEND Internal Medicine Nephrology
PROC: 0DB58ZX Excision of Esophagus, Via Natural or Artificial Opening Endoscopic, Diagnostic (ICD-10-PCS; 2019-08-30)
PROC: 0DB68ZX Excision of Stomach, Via Natural or Artificial Opening Endoscopic, Diagnostic (ICD-10-PCS; 2019-08-30)
PROC: 0FT44ZZ Resection of Gallbladder, Percutaneous Endoscopic Approach (ICD-10-PCS; principal; 2019-09-03 13:30)
DX: N00.9 Acute nephritic syndrome with unspecified morphologic changes (principal); N17.9 Acute kidney failure, unspecified; N14.1 Nephropathy induced by other drugs, medicaments and biological substances; I10 Essential (primary) hypertension; D64.9 Anemia, unspecified; E11.9 Type 2 diabetes mellitus without complications; Z72.89 Other problems related to lifestyle; K81.1 Chronic cholecystitis; K21.0 Gastro-esophageal reflux disease with esophagitis; K29.70 Gastritis, unspecified, without bleeding